=== PATIENT | female | born 1945 | race Two or more races ===

== ENCOUNTER 2023-04-25 08:34 | Outpatient (CLI) | payer OTHER | END 2023-04-25 08:41 | disposition home or self-care (01) | LOC: RX STUDY 08:34 | PROVIDERS: ATTEND Internal Medicine Gastroenterology | DX: R13.0 Aphagia (principal) ==

== ENCOUNTER 2024-12-09 08:45 | Inpatient (IN) | payer OTHER ==
[~2024-12-09] VITALS: Ht 152.4 cm; Wt 68.0 kg
[2024-12-09] MEDS ORDERED: WELLBUTRIN XL300 MG PO (09:26)
[2024-12-09] MEDS ORDERED: XANAX XR0.5 MG (09:27)
[2024-12-09] MEDS ORDERED: [UNRECOGNIZED DRUG - OTHER] (09:28)
[2024-12-09] MEDS ORDERED: HYDROCHLOROTHIA25 MG (09:31)
[2024-12-09] MEDS ORDERED: ATORVASTATIN CA10 MG PO (09:32)
[2024-12-09 09:35] LABS: URINE APPEARANCE Clear; URINE BILIRRUBIN Negative (NEGATIVE); URINE BLOOD Negative; URINE COLOR Yellow; URINE GLUCOSE Negative (NEGATIVE); URINE KETONE Negative (NEGATIVE); URINE LEUKOCYTE Small; URINE NITRATE Negative; URINE PROTEIN Negative (NEGATIVE); URINE UROBILINOGEN 0.2 E.U./dl
[2024-12-09 09:36] VITALS: BP 124/71
[2024-12-09 09:38] LABS: URINE BACTERIA 1248.2 uL (0.0-1933); URINE EPITHELIAL CELLS 44.9 uL (0.0-38.8); URINE RBC 2.7 uL (0.0-20.8); URINE WBC 60.1 uL (0.0-23.2)
[2024-12-09 09:38] LABS: HEMATOCRIT 36.7 % (36.0-45.00); HEMOGLOBIN 12.4 g/dL (12.0-15.00); MEAN CELL VOLUME 81.3 fL (80.00-100.00); MEAN CORPUSCULAR HEMOGLOBIN 27.5 pg (27.00-32.0); MEAN CORPUSCULAR HGB CONC 33.8 g/dl (32.0-36.0); PLATELET COUNT 234 K/uL (150-450); RED BLOOD COUNT 4.51 M/uL (4.00-6.00); RED CELL DISTRIBUTION WIDTH 14.3 % (11.5-14.5)
[2024-12-09 09:40] LABS: URINE CAST 0.29 uL (0.0-1.40)
[2024-12-09 10:12] LABS: INR 1.04; PARTIAL THROMBOPLASTIN TIME 24.8 SECONDS (22.0-34.0); PROTHROMBIN TIME 11.3 SECONDS (9.0-11.5)
[2024-12-09 10:52] LABS: ALBUMIN 3.7 gm/dL (3.4-5.0); BILIRUBIN TOTAL 0.46 mg/dL (0.3-1.2); CALCIUM 9.1 mg/dL (8.5-10.1); GFR 53.62; GLOBULINA 3.5 G/DL (2.4-3.5); POTASSIUM 4.19 mEq/L (3.5-5.1); TOTAL PROTEIN 7.2 gm/dL (6.4-8.2)
[2024-12-09 11:02] LABS: RH POSITIVE
[2024-12-17] MEDS ORDERED: VANCOMYCIN HCL 1,000 MG VIAL IV ONE (14:30)
[2024-12-17] MEDS ORDERED: BUPIVACAINE HCL 30 ML VIAL IV ONE (14:30)
[2024-12-17] MEDS ORDERED: TRANEXAMIC ACID 100MG/1ML (1000MG) AMPUL IV ONE ×2 (14:30)
[2024-12-17] MEDS ORDERED: LIDOCAINE HCL 1%/EPINEPHRINE 20ML VIAL IJ ONE (14:30)
[2024-12-17] MEDS ORDERED: VANCOMYCIN HCL 1,000 MG VIAL IR ONE (14:30)
[2024-12-17] MEDS ORDERED: POVIDONE-IODINE SCRUB 118 ML BOTT TOP ONE (14:30)
[2024-12-17] MEDS ORDERED: MORPHINE SULFATE 4 MG/ML CARTRIDGE IV ONE (14:30)
[2024-12-17] MEDS ORDERED: KETOROLAC TROMETHAMINE 60 MG VIAL IM ONE (14:30)
[2024-12-17] MEDS ORDERED: ENALAPRILAT DIHYDRATE 1.25 MG/ML VIAL IV PRN (15:00)
[2024-12-17] MEDS ORDERED: ONDANSETRON HCL 2 MG/ML VIAL IV PRN (15:45)
[2024-12-17] MEDS ORDERED: SODIUM CHLORIDE 0.45 % 1,000 ML IV SCH (15:45)
[2024-12-17] MEDS ORDERED: MORPHINE SULFATE 4 MG/ML CARTRIDGE IV PRN (15:45)
[2024-12-17] MEDS ORDERED: OxyCODONE HCL 5 MG TABLET (ROXICODONE) PO PRN (15:45)
[2024-12-17] MEDS ORDERED: GABAPENTIN 300 MG CAPSULE PO SCH (17:00)
[2024-12-17] MEDS ORDERED: CEFAZOLIN SODIUM 1,000 MG VIAL IV SCH (17:00)
[2024-12-17] MEDS ORDERED: ACETAMINOPHEN 500 MG GEL..CAP PO SCH (18:00)
[2024-12-17 18:30] VITALS: BP 109/64; O2SAT 97
[2024-12-18 00:13] VITALS: BP 90/59; O2SAT 96
[2024-12-18 07:40] LABS: HEMATOCRIT 31.2 % (36.0-45.00); HEMOGLOBIN 10.3 g/dL (12.0-15.00); MEAN CELL VOLUME 82.8 fL (80.00-100.00); MEAN CORPUSCULAR HEMOGLOBIN 27.2 pg (27.00-32.0); MEAN CORPUSCULAR HGB CONC 32.8 g/dl (32.0-36.0); PLATELET COUNT 171 K/uL (150-450); RED BLOOD COUNT 3.78 M/uL (4.00-6.00); RED CELL DISTRIBUTION WIDTH 13.9 % (11.5-14.5)
[2024-12-18] MEDS ORDERED: PERCOCET 5-3251 EACH PO (08:02)
[2024-12-18] MEDS ORDERED: ELIQUIS2.5 MG PO (08:02)
[2024-12-18] MEDS ORDERED: CEFADROXIL500 MG PO (08:02)
[2024-12-18] MEDS ORDERED: HYDROCHLOROTHIAZIDE 25 MG TABLET PO SCH (09:00)
[2024-12-18] MEDS ORDERED: APIXABAN 2.5 MG TABLET PO SCH (09:00)
[2024-12-18] MEDS ORDERED: SENNOSIDES 1 TAB TABLET PO SCH (09:00)
[2024-12-18] MEDS ORDERED: VANCOMYCIN HCL 1,000 MG VIAL IV SCH (09:00)
[2024-12-18] MEDS ORDERED: BUPROPION HCL 150 MG TABLET.SA PO SCH (09:00)
[2024-12-18] MEDS ORDERED: IRON FUM,PS/FOLIC ACID/VITC/B3 1 CAP CAPSULE PO NR (13:00)
[2024-12-18] MEDS ORDERED: Cyanocobalamin/Mecobalamin 1 TAB.SL SL NR (13:00)
[2024-12-18 14:37] VITALS: BP 123/61; O2SAT 100
[2024-12-18 16:00] VITALS: BP 118/42; O2SAT 99
[2024-12-18] MEDS ORDERED: VITAMIN B COMPLEX 1 EACH PO SCH (17:00)
[2024-12-18] MEDS ORDERED: SOD FERRIC GLUC COMPLX/SUCROSE 62.5 MG/5 ML AMPUL IV SCH (17:00)
[2024-12-19 00:32] VITALS: BP 104/74; O2SAT 98
[2024-12-19 06:51] LABS: HEMATOCRIT 27.3 % (36.0-45.00); HEMOGLOBIN 9.2 g/dL (12.0-15.00); MEAN CELL VOLUME 82.6 fL (80.00-100.00); MEAN CORPUSCULAR HGB CONC 33.9 g/dl (32.0-36.0); PLATELET COUNT 157 K/uL (150-450); RED CELL DISTRIBUTION WIDTH 13.9 % (11.5-14.5)
[2024-12-19 08:00] VITALS: BP 111/66; O2SAT 95
[2024-12-19] MEDS ORDERED: Cyanocobalamin/Mecobalamin 1 TAB.SL SL SCH (09:00)
[2024-12-19] MEDS ORDERED: IRON FUM,PS/FOLIC ACID/VITC/B3 1 CAP CAPSULE PO SCH (09:00)
== END 2024-12-19 18:04 | DRG 470 ==
LOC: SURG 12-17 07:00 → O/R 12-17 07:00 → SURH 12-17 08:45 → SURG 12-17 17:10
PROVIDERS: ADMIT Orthopaedic Surgery; ATTEND Orthopaedic Surgery
PROC: 0SUD07Z Supplement Left Knee Joint with Autologous Tissue Substitute, Open Approach (ICD-10-PCS; 2024-12-17)
PROC: 0SRD0J9 Replacement of Left Knee Joint with Synthetic Substitute, Cemented, Open Approach (ICD-10-PCS; principal; 2024-12-17 13:45)
DX: M17.12 Unilateral primary osteoarthritis, left knee (principal); D62 Acute posthemorrhagic anemia; M22.12 Recurrent subluxation of patella, left knee; G47.33 Obstructive sleep apnea (adult) (pediatric)